=== PATIENT | female | born 1985 | race Caucasian/White ===

== ENCOUNTER 2018-06-28 12:25 | Emergency (ER) | payer OTHER ==
[~2018-06-28] VITALS: Ht 162.6 cm; Wt 61.2 kg
[2018-06-28 12:30] VITALS: BP_SYST 143
--- NOTE | 2018-06-28 12:30 | NUR ---
Patient triaged and placed in waiting room. VSS and patient appears in no acute distress at this time. Accompanied by SELF, awaiting available bed, and MD notified of need for MSE.
[2018-06-28] MEDS ORDERED: NACL 0.9% 1,000 ML IV ONE (13:30)
[2018-06-28] MEDS ORDERED: KETOROLAC TROMETHAMINE 30 MG VIAL IVP ONE (13:30)
[2018-06-28] MEDS ORDERED: KETOROLAC TROMETHAMINE 60 MG/2 ML VIAL IM ONE (13:45)
--- NOTE | 2018-06-28 14:17 | NUR ---
BROUGHT BACK TO BED #2 AND REPORT GIVEN TO AGGIE
--- NOTE | 2018-06-28 14:45 | NUR ---
MEDICATED ORDERED. WILL MONITOR
[2018-06-28 15:08] VITALS: BP_SYST 137
--- NOTE | 2018-06-28 15:10 | NUR ---
Patient given written and verbal discharge instructions and verbalizes understanding. ER MD discussed with patient the results and treatment provided. Patient in stable condition. ID arm band removed. Rx of MOTRIN, AUGMENTIN, FLUTICASONE given. Patient educated on pain management and to follow up with PMD. Pain Scale 0/10. Opportunity for questions provided and answered. Medication side effect fact sheet provided.
== END 2018-06-28 15:08 | disposition home or self-care (01) ==
LOC: SED 12:25
DX: J32.9 Chronic sinusitis, unspecified (principal); G43.909 Migraine, unspecified, not intractable, without status migrainosus; R03.0 Elevated blood-pressure reading, without diagnosis of hypertension
CPT/HCPCS: 81025; 96372; 99283; J1885